=== PATIENT | female | born 1975 | race Caucasian/White ===

== ENCOUNTER 2018-01-13 08:07 | Outpatient (CLI) | payer MEDICARE, MEDICAID ==
--- NOTE | 2018-01-13 10:16 | MRI ---
MR OF THE RIGHT SHOULDER WITHOUT CONTRAST: Indication: 42-year-old female with prior history of rotator cuff repair with persistent pain in the right shoulder for 2-3 years. Technique: Multiplanar, multisequence MR images were obtained in the right shoulder without IV contra st. Comparisons are made with radiographs of the right shoulder from [facility] on 07-27. FINDINGS: Susceptibility artifact on the patient's suture anchor within the central aspect of the humeral head is slightly limited in its detail. There is moderate to severe tendinosis of the supraspinatus. There is a partial thickness arterial surface tear involving the infraspinatus, involving approximately 50 % of the tendon thickness. No full thickness rotator cuff tear is evident. A small amount of fluid is seen near the subacromial subdeltoid recess. The subscapularis tarsus minor appear within normal souza its. The biceps tendon is located. Biceps anchor complex and inferior glenohumeral labral ligamentous complex appears within normal limits. Glenohumeral articular surface is normal appearing. There is m ild AC joint osteoarthrosis. There is mild muscular atrophy of the supraspinatus. No lymphadenopathy is evident. IMPRESSION: 1. Partial thickness articular surface tear involving the infraspinatus. The partial thickness tear i nvolves approximately 50% of the tendon thickness of the inferior spinatus. 2. Moderate to severe supraspinatus tendinosis. 3. Post-surgical change of prior rotator cuff repair. POS: [facility]
== END 2018-01-13 08:08 | disposition home or self-care (01) ==
LOC: SCSMRI 08:07
PROVIDERS: ATTEND Orthopaedic Surgery
DX: M25.511 Pain in right shoulder (principal); S46.911A Strain of unspecified muscle, fascia and tendon at shoulder and upper arm level, right arm, initial encounter; M75.91 Shoulder lesion, unspecified, right shoulder

== ENCOUNTER 2018-11-11 14:56 | Observation (INO) | payer MEDICARE, MEDICAID ==
--- NOTE | 2018-11-11 17:16 | ULT ---
RIGHT LOWER EXTREMITY VENOUS DOPPLER: Date: 11/11/18 HISTORY: Lower extremity edema, pain, numbness. COMPARISON: None. TECHNIQUE: Real-time Lee scale and color Doppler with spectral analysis of the right lower extremity venous sy stem was performed. The common femoral, femoral, proximal portions of greater saphenous and deep femo ral veins, as well as the popliteal and posterior tibial veins are interrogated. FINDINGS: Normal flow, augmentation, and compression. IMPRESSION: No deep venous thrombosis. POS: [facility]
[2018-11-11 18:54] LABS: Bilirubin Small (Negative); Blood, Urine Negative (Negative); Clarity CLOUDY (Clear); Glucose, Urine (Dipstick) Negative (Negative); Leukocyte Moderate (Negative); Nitrite Positive (Negative); Protein, Urine (Dipstick) Negative (Neg-Trace); Specific Gravity, Urine 1.027 (1.002-1.036); Urobilinogen 0.2 mg/dL (0.2-1.0); pH, Urine 5.5 (5.0-9.0)
[2018-11-11 18:55] LABS: Pregnancy Test - Urine (BHCG) Negative (Negative); Pregu Control Background? CLEAR/WHITE (CLR/WHITE); Pregu Control Bar Appear? YES (CONTROL BAR); Specific Gravity 1.027 (1.002-1.036)
[2018-11-11 18:56] LABS: Bacteria/HPF 4+ HPF (None Seen); Pathc Cast-AUWi Flag 0.58 (0-2.49); RBC/HPF 0-3 HPF (0-3); WBC/HPF 21-50 HPF (0-3)
[2018-11-11 19:01] LABS: Hyaline Casts/LPF 0-3 HYALINE CAST LPF (0-3 Hyaline)
--- NOTE | 2018-11-11 19:38 | RAD ---
RIGHT ANKLE RADIOGRAPHS THREE VIEWS: 11/11/18 PROVIDED CLINICAL HISTORY: Right leg weakness. FINDINGS: There is no evidence for fracture or other acute osseous abnormality. If there is persistent clinical concern, conservative management and followup imaging are advised. IMPRESSION: As above. POS: [facility]
--- NOTE | 2018-11-11 20:55 | CT ---
CT BRAIN 11/11/18 PROVIDED CLINICAL HISTORY: Right lower extremity weakness. FINDINGS: Comparison 04/07/15. The ventricular system appears normal in size and morphology. There is no evidence for intracranial h emorrhage or mass effect. The extracranial soft tissues and osseous structures demonstrate no acute a bnormality. Conspicuous paranasal sinus opacification is demonstrated. IMPRESSION: 1. No evidence for intracranial hemorrhage or mass effect. 2. Paranasal sinus mucosal disease. POS: [facility]
--- NOTE | 2018-11-11 21:52 | CT ---
CT ANGIOGRAM ABDOMEN AND PELVIS AND BILATERAL LOWER EXTREMITIES WITH IV CONTRAST AND 3D MIP RECONSTRU CTIONS 11/11/18 PROVIDED CLINICAL HISTORY: Right lower extremity numbness. FINDINGS: The visualized lung bases are free of significant opacity. The solid abdominal organs are suboptimall y evaluated in the arterial phase of contrast but demonstrate an unremarkable CT appearance for the p hase of contrast in which the study was acquired. There was no bowel dilatation, inflammatory fat str anding, free fluid or free air apparent. Changes of prior cholecystectomy are noted. The abdominal aorta is nonaneurysmal and patent. The celiac, superior mesenteric, renal and inferior mesenteric arteries are patent. Minimal vascular calcification is seen involving the common iliac art enedina on the right. The internal and external iliac arteries appear widely patent. The bilateral common femoral, profunda femoral and superficial femoral arteries are widely patent, as are both popliteal arteries. The right posterior tibial and peroneal arteries are patent to the foot . The right anterior tibial artery is patent to the level of the mid foreleg subsequent to which it i s not opacified. The posterior tibial, anterior tibial, and peroneal arteries on the left are patent to the level to the foot. IMPRESSION: Two vessel runoff on the right. Otherwise unremarkable CT angiogram. POS: [facility]
[2018-11-11] MEDS ORDERED: Acetaminophen 325 MG TAB PO PRN (22:21)
--- NOTE | 2018-11-11 23:01 | RAD ---
RIGHT WRIST RADIOGRAPHS THREE VIEWS 11/11/18 PROVIDED CLINICAL HISTORY: Injury. FINDINGS: Evaluation is limited by overlying material. There is no evidence for fracture or other acute osseous abnormality. If there is persistent clinical concern, conservative management and followup imaging a re advised. IMPRESSION: As above. POS: [facility]
[2018-11-11 23:37] VITALS: BMI 27.9
--- NOTE | 2018-11-11 23:37 | MRI ---
MRI OF THE LUMBAR SPINE 11/11/18 PROVIDED CLINICAL HISTORY: Right calf and foot numbness for two days without injury. FINDINGS: Lumbar alignment appears normal. Vertebral body heights are preserved. Five lumbar vertebral bodies a re assumed. The conus medullaris is normal in signal and terminates at an appropriate level. The visu alized extraspinal soft tissues appear unremarkable. There is a central disc herniation at L5-S1. Thi s produces effacement of the ventral subarachnoid space and approximates the traversing left S1 nerve root and its lateral recess. There is bilateral facet arthritis at this level. There is mild right f oraminal narrowing. No significant central canal stenosis apparent. No additional foraminal or canal narrowing is seen throughout the lumbar spine. IMPRESSION: Degenerative change at the lumbosacral junction as above. POS: [facility]
[2018-11-12] MEDS ORDERED: clonazePAM 0.5 MG TAB PO SCH ×2 (00:30→09:00)
--- NOTE | 2018-11-12 05:10 | HP ---
CHIEF COMPLAINT: Right leg numbness. HISTORY: This patient is a 43-year-old female with a significant history of drug abuse and psychiatric illness who presented to the emergency department in [place] with a complaint of coldness and numbness in her right leg. The patient reports that she was in her usual state of health until yesterday. She took a nap. When she woke up, her leg below the right knee felt like it was asleep and would not wake up. She thought it would resolve, so she waited, but she has not been able to bear any weight or walk. She tried to stand and states she nearly fell, so she has basically been scooting around with her hands until she presented to the emergency department today. There, the patient's workup was unrevealing including a normal EKG. She was transferred here to the emergency department. She reports that she does have some sensation over the medial calf, but has no sensation over the lateral calf or the entire foot. She has no ability to move anything below the knee with flexion or extension. The patient initially was thought to have coolness to touch in her right lower extremity. She underwent an aortogram with runoff, which did not reveal any substantial occlusive disease and a vascular ultrasound was negative for DVT. REVIEW OF SYSTEMS: All systems reviewed and the only significant finding was some intermittent constipation; otherwise, all pertinent positives and negatives were mentioned in the history of present illness. PAST MEDICAL HISTORY: Notable for hep C with some cirrhosis, history of stomach ulcers, history of chronic bronchitis, history of drug abuse including cocaine abuse in the past. PSYCHIATRIC HISTORY: ADD, bipolar with psychosis, anxiety, borderline personality disorder, antisocial disorder. PAST SURGICAL HISTORY: Cleft palate repair, right inguinal hernia repair, C-sections x3, lap isidro, bilateral tubal ligation, right rotator cuff repair. Of note, the patient reported that she had some type of pituitary tumor; however, on reviewing her record, November of 2016, she had an MRI of the brain for "possible pituitary tumor." However, that MRI was negative. FAMILY HISTORY: Reviewed with the patient. There were no significant medical conditions within the family, certainly nothing relevant to this admission. SOCIAL HISTORY: The patient has a history of drug abuse. She currently continues to use [place] that she buys off the street. She smokes half a pack of cigarettes per day. Lives with her family. Says she has a fiance. She says that she wants to be DNR because one never knows how they might come out of something like that and her surrogate decision maker would be her "sebastian." ALLERGIES: PENICILLIN AND SULFA. CURRENT MEDICATIONS: 1. Klonopin 1 mg t.i.d. 2. Abilify 20 mg daily. 3. Lamictal 200 mg daily. 4. Protonix 40 mg daily. PHYSICAL EXAMINATION: VITAL SIGNS: BP 107/69, pulse 88, respirations 17, O2 saturation 96% on room air. GENERAL APPEARANCE: Age-appropriate female. She is in no distress. She is awake, alert, oriented, pleasant, and cooperative. HEENT: PERRL. No OP lesions. She does have multiple surgical changes from the cleft palate and cleft lip repair. NECK: Supple and symmetric without lymphadenopathy, JVD, or bruits. HEART: Regular rate and rhythm without murmurs, gallops, or rubs. LUNGS: Clear to auscultation bilaterally with good chest wall expansion and air exchange. ABDOMEN: Soft, nontender, and nondistended. Positive bowel sounds. No masses. No organomegaly. EXTREMITIES: No cyanosis, clubbing, or edema. NEUROLOGIC: The patient has no movements below the knee. She is able to fully lock out her knee and left her leg off the bed with good hip flexion and extension. She denies sensation over the medial calf, but she does have withdrawal of the entire leg to a Babinski, although she indicates no sensation on the foot. She does not have any significant temperature changes and the right lower extremity is warm and is similar to the left. She does have normal strength in her upper extremities and she has some slight tenderness in the right wrist area. IMAGING STUDIES: X-ray of the right ankle is negative. Vascular ultrasound negative for DVT. CT scan of the brain, no evidence of intracranial hemorrhage or mass effect. There are some paranasal sinus mucosal thickening. Aortogram with runoff. CTA, no evidence of significant occlusion. IMPRESSION AND PLAN: 1. Right lower extremity paresthesia, unclear etiology. The patient does not appear to have any vascular compromise based on her aortogram, a CTA with runoff. This is warm and dry. She has excellent posterior tibial and dorsalis pedis pulses present. We will keep the patient in observation, obtain an MRI of the lumbar spine, and ask Physical Therapy to see her. Pending the results, she may need further evaluation by Neurology. 2. Right wrist pain. The patient reports that she fell on this about a week ago. We will get an x-ray of that just to rule out any fracture there. 3. Bipolar disorder. We will continue the patient on her usual home psych medications. 4. Drug abuse. The patient continues to use street purchased [place]. We will not give her any of those at the moment and be mindful of any potential withdrawal. The patient reports she does not use these on a regular basis. Job ID: [id number]
[2018-11-12] MEDS: clonazePAM 0.5 MG TAB PO SCH ×3 (08:06→20:19)
[2018-11-12] MEDS ORDERED: lamoTRIgine 100 MG TAB PO SCH ×2 (09:00)
[2018-11-12] MEDS ORDERED: ADDERALL 20MG PO SCH (09:00)
[2018-11-12] MEDS ORDERED: Aripiprazole 10 MG TAB PO SCH ×2 (09:00)
--- NOTE | 2018-11-12 17:46 | PDOC.PN ---
- Subjective Encounter Start Date: 11/12/18 Encounter Start Time: 11:30 Subjective: Patient denies new complaints on exam this morning -: Using walker in the thomas with PT, dragging right foot, denies pain - Objective Resuscitation Status - Order Detail: 11/11/18 22:21 Resuscitation Status Routine Resuscitation Status: DNAR: NO Resuscitation Discussed with: Patient Vital Signs & Weight: Vital Signs (12 hours) Temp Pulse Pulse Pulse Resp BP BP 11/12/18 15:17 98.5 F 88 16 11/12/18 11:45 83 88 114/75 114/71 11/12/18 11:40 98.1 F 90 20 11/12/18 07:21 98.5 F 84 20 BP Pulse Ox 11/12/18 15:17 110/62 96 11/12/18 11:45 11/12/18 11:40 93/56 L 99 11/12/18 07:21 91/62 96 Weight Weight 65.952 kg I&O: 11/11/18 11/12/18 11/13/18 06:59 06:59 06:59 Intake Total 240 750 Output Total 700 Balance 240 50 Phys Exam - Physical Examination HEENT: PERRLA, moist MMs Neck: no nodes, no JVD Respiratory: no wheezing, clear to auscultation bilateral Cardiovascular: RRR, no significant murmur Gastrointestinal: soft, non-tender decreased sensation to right lower leg, decreased reflexes right lower leg Psychiatric: normal affect Skin: normal turgor, cap refill <2 seconds Dx/Plan (1) Decreased sensation of lower extremity Code(s): R20.8 - OTHER DISTURBANCES OF SKIN SENSATION Status: Acute (2) Bipolar 1 disorder Code(s): F31.9 - BIPOLAR DISORDER, UNSPECIFIED Status: Chronic (3) Drug abuse Code(s): F19.10 - OTHER PSYCHOACTIVE SUBSTANCE ABUSE, UNCOMPLICATED Status: Chronic - Plan cont current plan of care Dr. Frost ordered MRI brain and steroids and he will -: see patient tomorrow. -: Will continue to monitor VS/labs * .
--- NOTE | 2018-11-13 00:29 | CON ---
DATE OF CONSULTATION: 11/12/2018 CONSULTING PHYSICIAN: Hospitalist service. IMPRESSION: Acute right lower extremity weakness and numbness of uncertain etiology. It is a bit atypical for a mononeuritis multiplex to come on so abruptly. It is possible multiple sclerosis type attack could produce this, although it is a bit atypical as well. PLAN: 1. Prednisone 40 mg per day. 2. MRI of the brain. HISTORY OF PRESENT ILLNESS: Ms. Laura is a 43-year-old white female with a past history of hepatitis C with some secondary cirrhosis, gastric ulcers, chronic bronchitis, and a distant history of drug abuse. She awoke and found that her right leg was weak and numb. There was no associated pain. There is no weakness of any other extremity. She had a CT scan of the brain done, which was normal. She had an MRI of the lumbar spine done, which looks normal as well. She has never had anything like this before. She denies any prodromal illness. PAST MEDICAL HISTORY: As listed above. ALLERGIES: PENICILLIN AND SULFA. MEDICATIONS: 1. Klonopin. 2. Abilify. 3. Lamictal. 4. Protonix. FAMILY HISTORY: Unremarkable for any neurologic conditions. PAST PSYCHIATRIC HISTORY: ADD, bipolar with psychosis, anxiety, borderline personality disorder and antisocial behavior disorder. REVIEW OF SYSTEMS: No complaint of headache, nausea, vomiting, vertigo, slurred speech, facial numbness, upper extremity weakness or numbness. PHYSICAL EXAMINATION: GENERAL: She is a well-nourished, middle-aged woman, in no acute distress. VITAL SIGNS: Blood pressure 110/62, pulse 88, respirations 16, temperature 98.5. HEENT: Only remarkable for a repaired cleft lip. NECK: Supple. EXTREMITIES: No cyanosis or swelling. NEUROLOGIC: She is alert and appropriate. Her speech is fluent and clear. Cranial nerves II through XII are intact. Motor exam showed good strength in both upper extremities. Left lower extremity had normal strength. Right lower extremity had mild weakness of hip flexion and knee extension. She had severe weakness in the sciatic distribution with essentially 0/5 strength. Sensation was subjectively decreased in the right lateral leg and top and bottom of the foot. Reflexes were abstinent in the right leg. They were 1+ in the left leg. Plantar response was mute. Gait was not tested. LABORATORY STUDIES: Unremarkable CBC and serum chemistry panel. She had a drug screen done back in August, which was positive for methadone. SUMMARY: This is a 43-year-old woman with acute onset of right leg weakness and numbness without any associated pain. We will pursue MRI of the brain to rule out a central cause. I will go ahead and start her on steroids and follow up with her tomorrow. Job ID: [id number]
[2018-11-13] MEDS ORDERED: predniSONE 20 MG TAB PO SCH (08:00)
[2018-11-13 08:15] VITALS: BP 120/79; TEMP 97.9
--- NOTE | 2018-11-14 03:16 | DIS ---
DATE OF ADMISSION: 11/11/2018 DATE OF DISCHARGE: 11/13/2018 PRIMARY CARE PHYSICIAN: Dr. Justus Ramos. CONSULTANTS: Dr. Frost. PROCEDURES: 1. Aorta with runoff CTA. Impression; two-vessel runoff on the right, otherwise unremarkable CTA. 2. The patient had a brain CT. Impression;. a. No evidence of intracranial hemorrhage or mass effect. b. Paranasal sinus mucosal disease. 3. The patient had venous Doppler ultrasound on the right that showed no deep venous thrombosis. The patient had an ankle x-ray on the right, which showed no evidence for fracture or other acute osseous abnormality. The patient had a lumbar spine MRI which showed degenerative changes at the lumbosacral junction as above. 4. The patient had a right wrist radiograph which showed evaluation limited by overlying material. No evidence for fracture or other acute osseous abnormalities. HOSPITAL COURSE: Ms. Laura is a 43-year-old female, significant history of drug abuse and psychiatric illness who presented to the emergency room at [place] with a complaint of coldness and numbness to her right leg. The patient reports that she was in her usual state health when she took a nap. When she woke up, the right leg below the knee felt like it was asleep and would not wake up. She thought it would resolve, but she was not able to bear any weight or walk. She reports that she tried to stand and nearly fell and so she reported to the emergency room at [place]. She reports that she does have some sensation of the medial calf, but no other sensation to the lateral calf or entire foot. She has no ability to move anything below the knee with flexion or extension. She initially was thought to have some coolness to the touch on the right lower extremity, so she had an aortogram with a runoff which did not reveal any substantial occlusive disease and a vascular ultrasound which was negative for DVT. The patient was admitted to the observation unit for further management. The patient had an MRI of the lumbar spine and had a consultation by Dr. Frost, neurologist. IMPRESSION: Acute right lower extremity weakness and numbness of uncertain etiology, atypical for mononeuritis multiplex since it came on so abruptly, possible multiple sclerosis type attack, but also atypical. PLAN: Prednisone 40 mg per day. MRI of the brain. On 11/13 a.m., the patient reports that she wanted to go home, wanted to sign out AMA. This provider went into talk to her to try to talk her into staying for the brain MRI and allow Dr. Frost to finish his assessment. She refused and signed out AMA. CONDITION: Stable. The patient discharged AMA. The patient should follow up with her primary care, Dr. Frost, this was verbally expressed to her and she stated understanding. The patient case was discussed with Dr. Cortez and he was aware. Job ID: [id number]
== END 2018-11-13 08:26 | disposition left against medical advice (07) ==
LOC: ERS 14:56 → 2SW 20:55
PROVIDERS: ADMIT Family Medicine; ATTEND Family Medicine
DX: R53.1 Weakness (principal); B19.20 Unspecified viral hepatitis C without hepatic coma; K74.60 Unspecified cirrhosis of liver; F98.8 Other specified behavioral and emotional disorders with onset usually occurring in childhood and adolescence; F31.9 Bipolar disorder, unspecified; F60.3 Borderline personality disorder; F11.10 Opioid abuse, uncomplicated; Z90.49 Acquired absence of other specified parts of digestive tract; Z98.51 Tubal ligation status; Z88.2 Allergy status to sulfonamides; Z88.0 Allergy status to penicillin; Z79.52 Long term (current) use of systemic steroids; Z98.890 Other specified postprocedural states; Z79.899 Other long term (current) drug therapy; M79.661 Pain in right lower leg
CPT/HCPCS: 70450; 72148; 73110; 73610; 75635; 81025; 93971; 97139; 99285; G0378 ×2; G8978; G8979; 81003; 81015; J7506

== ENCOUNTER 2018-12-21 12:09 | Outpatient (CLI) | payer MEDICARE, MEDICAID ==
[2018-12-21] MEDS ORDERED: Gadobenate Dimeglumine 529 MG/1 ML (20ML VIAL) ONE (13:25)
--- NOTE | 2018-12-21 15:33 | MRI ---
MRI OF BRAIN WITH AND WITHOUT IV CONTRAST: 12/21/18 HISTORY: Paresthesia of lower extremity. Right leg numbness. COMPARISON: 12/03/16. No restricted diffusion is seen. No evidence of infarct, hemorrhage, mass, midline shift, or abnormal extra-axial fluid collections are noted. The ventricular size is stable and the basilar cisterns pat ent. No abnormal postcontrast enhancement is seen. No signal abnormalities are noted in the high sens itive FLAIR images. The visualized paranasal sinuses and mastoid air cells are well aerated. IMPRESSION: Unremarkable exam. POS: [facility]
== END 2018-12-21 12:10 | disposition home or self-care (01) ==
LOC: BICMRI 12:09
PROVIDERS: ATTEND Nurse Practitioner Acute Care
DX: R20.2 Paresthesia of skin (principal)
CPT/HCPCS: 70553; A9577

== ENCOUNTER 2020-06-23 12:50 | Inpatient (IN) | payer MEDICARE, MEDICAID, OTHER ==
[~2020-06-23 12:50] MED LIST: Iopamidol-370 76% 500 ML 1 ML ONE
--- NOTE | 2020-06-23 14:04 | ULT ---
US Pelvic Transvag W Doppler History: Pelvic pain Comparison: CT examination June 15, 2020 Findings: Real-time grayscale and color evaluation of the pelvis performed transabdominal approach on ly. Dilated debris filled structures in the pelvis extending from the right to the left adnexa abutting t he urinary bladder. Internal components are not solid. Peripherally the barry are irregular with internal debris. Right ovary not well seen. Left ovary is normal. Impression: Findings highly suggestive of left pyosalpinx and tubo-ovarian abscesses. Gynecologic con sultation advised.
[2020-06-23] MEDS ORDERED: Morphine 4 MG/ML VIAL ONE ×2 (14:24→18:22)
[2020-06-23] MEDS ORDERED: cefTRIAXone\\ROCEPHIN 2 GM VIAL ONE (14:24)
--- NOTE | 2020-06-23 14:36 | PDOC.BPN ---
- Brief Progress Note OBGYN Machine Clerical Verifier Phone consult Just spoke with the ED provider regarding Ms Laura. This is a 44 yo with HX Hep C , s/p prior BTL in the past with a CT done on 06/15 with a left complex adnexal cystic structure. She did not have follow up then and returns today from [place] for pelvic sono due to Left LAP. Sono here with cystic structure left adnexa to midline but sono states "normal left ovary". WBC is 19 today, lactate is normal. LFTS are normal As she is 44, s/p prior BTL, with a "normal ovary on the left"...I am not sure if this is PID/pyosalping vs other. Hard to have a TOA with a normal ovary on the left but it could be isolated left pyosalpinx. They will get another CT to get more information. I have requested Rocephin/Doxy/flagyl for now. Hep C viral load sent off as well
[2020-06-23 15:06] LABS: Bacteria/HPF 4+ HPF (None Seen); Bilirubin Negative (Negative); Blood, Urine Negative (Negative); Clarity Turbid (Clear); Glucose, Urine (Dipstick) Normal (Negative); Ketone, Urine 10 mg/dL (Negative); Leukocyte 75 Leu/uL (Negative); Nitrite 2+ (Negative); Protein, Urine (Dipstick) 30 mg/dL (Neg-Trace); RBC/HPF 0-3 HPF (0-3); Specific Gravity, Urine 1.034 (1.002-1.036); Squamous Epithelial 0-3 HPF (0-3); Urobilinogen Normal mg/dL (Less than 2); pH, Urine 6.5 (5.0-9.0)
[2020-06-23 15:07] LABS: Pregnancy Test - Urine (BHCG) Negative (Negative); Pregu Control Background? CLEAR/WHITE (CLR/WHITE); Pregu Control Bar Appear? YES (CONTROL BAR); Specific Gravity 1.034 (1.002-1.036)
[2020-06-23] MEDS ORDERED: metroNIDAZOLE 500 MG/100 ML BAG ONE (15:18)
[2020-06-23] MEDS ORDERED: Doxycycline 100 MG CAP PO SCH (15:30)
[2020-06-23] MEDS ORDERED: Pantoprazole 40 MG VIAL ONE (15:43)
[2020-06-23] MEDS ORDERED: Ondansetron PF 4 MG/2 ML Vial ONE ×2 (15:43→18:23)
--- NOTE | 2020-06-23 16:07 | CT ---
CT Abdomen Pelvis W Con History: Abdominal pain Comparison: Ultrasound same day. CT May 2020 Findings: Lung bases are clear. No pericardial effusion. Mild intrahepatic biliary dilatation, likely reservoir effect from prior cholecystectomy. No hydronephrosis. Mildly distended cecum and secondary inflammatory change. Appendix is well-visualized on today's exam than prior. Peripherally enhancing abscess anterior to the uterus has slightly increased in size. Extensive sligh t progressive inflammatory response of the adjacent prevesicular fat. There are clips within the right adnexa. Rightward displacement of the uterus. Anterior displacement of the urinary bladder. Impression: Slightly enlarging and increased inflammatory response around the tubo-ovarian abscess an d suggestive pyosalpinx. Gynecologic consultation advised.
--- NOTE | 2020-06-23 16:24 | PDOC.BPN ---
- Brief Progress Note CT scan with approx 7x5 cm cystic collection?pyosalpinx. VP3 with BV and yeast. Flagyl included in the meds ordered. Will admit for empiric ABX and follow. Afebrile at this point. Recheck CBC in AM
[2020-06-23] MEDS ORDERED: Sodium Chloride 0.9% 1,000 ML IV SCH (16:30)
--- NOTE | 2020-06-23 17:22 | HP ---
TIME OF EVALUATION: Roughly 1645 hours. LOCATION: ER bed 24. HISTORY OF PRESENT ILLNESS: In brief, this is a 44-year-old 9, para 3, living 4 (one set of twins) with 3 previous C-sections, with one molar in the past, whose last menstrual period was two weeks ago, who arrives after initial evaluation in [place] [facility]. She was sent to this ER for pelvic ultrasound for further evaluation of what the CT scan showed, which was a possible left TOA/hydrosalpinx or pyosalpinx. She arrived here and she underwent an ultrasound, which showed this left complex cystic structure about 7 x 5 cm on ultrasound, but ironically, the left ovary was normal per ultrasound findings. The right ovary was not well seen and there were no gross uterine abnormalities by verbal ultrasound report. The ER physician did contact me and have an interim progress note in the EMR regarding that brief conversation before my in-person evaluation. In the interim, she had a CT scan, which showed similar findings to the ultrasound, this ill-described pelvic fluid collection in the left slightly abutting the uterus and slightly in the anterior cul-de-sac. It is a working suspicion at this time that this is a pyosalpinx versus other. Clinically, the patient is well. REVIEW OF SYSTEMS: The patient states some lower abdominal pain, which has been going on for several days and has prompted an ER evaluation first in [place] and now here. She also states that she has irregular periods and has not had a period since possibly December, but her last menstrual period was now about 2 weeks ago. PAST MEDICAL HISTORY: She does have hepatitis C by her record, but she does not see a liver specialist. She is not on any medications. ALLERGIES: SULFA AND PENICILLIN. PAST PSYCHOLOGICAL HISTORY/PSYCHIATRY HISTORY: Positive for bipolar or paranoid schizophrenia. The patient states that she has paranoid schizophrenia, but is under control and is not on under medications, although she did see a private psychiatrist in the past. The ER record states that she has a history of bipolar. The patient has either one or both of these two conditions. PAST SURGICAL HISTORY: Significant for her three previous C-sections and BTL with her last . SOCIAL HISTORY: The patient has a new partner and has had recent unprotected intercourse with that partner. 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 She may have had "an outbreak recently", but is not sure. Social history per the ER physician is noncontributory, although she does have a remote history of drug use. PHYSICAL EXAMINATION: VITAL SIGNS: Blood pressure is 123/82, pulse is 100, and she is afebrile with a temperature of 98.2, respirations are 18, and nonlabored. GENERAL: She is in no acute distress, sitting up, and is oriented to person, place, and time. Per the ER physician, there is no vaginal bleeding or abnormal discharge. Per the ER abdominal examination, she did have discomfort on deep palpation in the adnexal regions, left more than right. RADIOLOGICAL STUDIES: CT and ultrasound were done here in the ER and the findings were as previously discussed. LABORATORY DATA: Her white blood cell count here was 19. Her lactate was normal. Her liver function tests were actually normal as well. Her creatinine was normal. Her voided urine did show some 4+ bacteria, but it is possibly contaminated. Labs pending. We have a hepatitis C RNA requested, I have also requested HIV and RPR. We will do a repeat CBC tomorrow morning. ASSESSMENT: This is a 44-year-old multigravida with last menstrual period two weeks ago, status post BTL years ago, with suspected left hydrosalpinx or pyosalpinx. I did discuss with the ER physician that the patient at 44 years of age, who has had a BTL makes pyosalpinx/hydrosalpinx less likely; however, she has had risk factors, which is unprotected intercourse with a new partner. Gonorrhea and chlamydia were also collected and those are pending. I have discussed with the patient the findings and the empiric diagnosis of PID and plan for inpatient antibiotics. PLAN: 1. Inpatient antibiotics with IV Rocephin and Flagyl, oral doxycycline. 2. NSAIDs p.r.n. pain. 3. Repeat CBC in the morning and follow trend. 4. Follow GC and chlamydia PCR. 5. Follow her HIV and RPR PCR. 6. If the patient is not better in 72 hours, we may consider surgical consult and/or Interventional Radiology drainage or laparoscopic imaging to find the exact source of this fluid collection. 7. The patient is seen at bedside and questions were answered. Job ID: [id number]
[2020-06-23 17:46] LABS: HIV (1/2) Antibody/Antigen Non-Reactive (NonReactive)
[2020-06-23] MEDS ORDERED: Ondansetron ORAL SOLN. 4 MG/5 ML UDCUP PO PRN (18:13)
[2020-06-23 18:50] LABS: Syphilis Antibody Nonreactive (Nonreactive); Syphilis Antibody Index 0.07 S/CO (<1.00 Non-Reactive)
--- NOTE | 2020-06-23 20:26 | PDOC.BPN ---
- Brief Progress Note CALE pablo not done in ED. I have ordered it now.
--- NOTE | 2020-06-23 20:37 | PDOC.BPN ---
- Brief Progress Note Patient was on protonix...will order. Was informed she has a HX opioid addiction.
[2020-06-23] MEDS: Lactated Ringer's 1,000 ML IV SCH (21:21)
[2020-06-24] MEDS: metroNIDAZOLE 500 MG in Premix Bag 1 BAG IVPB SCH ×5 (00:04→19:47)
[2020-06-24] MEDS: Ibuprofen 800 MG TAB PO PRN ×3 (00:04→16:58)
--- NOTE | 2020-06-24 03:53 | PDOC.BPN ---
- Brief Progress Note HD 23 Suspected Left Hydrosalpinx vs other On triple ABX S. Patient was sleeping when I visited her O. TMAx 100.9 LAST pm AT APROX 1930 CBC PENDING THIS am BLOOD AND URINE CULTURE PENDING gc AND chl PENDING HEP C RNA PENDING COVIS SCREEN PENDING A/P: PELVIC TOA VS OTHER: HX Hep C HX Opiod use CONTINUE abx X3...FOLLOW LABS
[2020-06-24] MEDS: Lactated Ringer's 1,000 ML IV SCH ×3 (06:01→23:56)
[2020-06-24] MEDS: cefTRIAXone\\ROCEPHIN 2 GM in Sodium Chloride 0.9% 100 ML IVPB SCH ×2 (07:32→16:17)
[2020-06-24 08:22] LABS: Band 2 % (5-11); Hemoglobin 8.4 g/dL (12.0-16.0); Hypochromia MODERATE=16-30 cells (100X) (0-5/hpf); Lymphocytes 7 % (21-51); MDiff Complete? YES; Mean Corpuscular Hemoglobin 22.1 pg (27.0-31.0); Mean Corpuscular Volume 71.5 fL (78.0-98.0); Mean Platelet Volume 7.5 fL (7.4-10.4); Microcytosis SLIGHT = 6-15 cells (100X) (0-5/hpf); Monocytes 2 % (0-10); Neutrophil 89 % (42-75); Platelet Count 527 thou/uL (130-400); RBC Distribution Width 16.8 % (11.5-14.5); Reflex for Review?? YES; White Blood Cell (WBC) Count 16.5 thou/uL (4.8-10.8)
[2020-06-24] MEDS ORDERED: Fluconazole 100 MG TAB PO SCH (11:00)
[2020-06-24] MEDS ORDERED: Bisacodyl 5 MG TAB PO SCH (14:45)
[2020-06-24 15:00] LABS: SARS-CoV-2 MS2 Positive; SARS-CoV-2 N Gene Negative; SARS-CoV-2 S Gene Negative; SARS-CoV-2 by NAA Not Detected (NotDetected); SARS-CoV-2 orf1ab Negative
[2020-06-24] MEDS: Dicyclomine 20 MG TAB PO PRN ×2 (16:58→21:49)
[2020-06-25] MEDS: Ibuprofen 800 MG TAB PO PRN ×3 (00:10→20:03)
[2020-06-25] MEDS: metroNIDAZOLE 500 MG in Premix Bag 1 BAG IVPB SCH ×4 (00:10→17:46)
[2020-06-25] MEDS: Lactated Ringer's 1,000 ML IV SCH ×3 (00:14→23:15)
--- NOTE | 2020-06-25 06:43 | PDOC.EVN ---
Event Note - Event Note Event Note: Rocephin/Dox/ Flagyl #2 Resting comfortably. says she feels better than yesterday. VSS AF. Abdomen soft, NT UC returns with GNR >10x6 A/p; Suspected TOA CBC repeated this AM Cont. ABX, consider re imaging after 72 hrs ABX
[2020-06-25] MEDS: Ondansetron ODT 4 MG TAB PO PRN ×2 (08:24→14:20)
[2020-06-25] MEDS: Bisacodyl 5 MG TAB PO SCH (08:25)
[2020-06-25 08:39] LABS: #Basophils 0.1 thou/uL (0.0-0.2); #Lymphocytes 1.4 thou/uL (1.20-3.40); #Monocytes 0.6 thou/uL (0.11-0.59); #Neutrophils 11.3 thou/uL (1.40-6.50); %Basophils 0.4 % (0.0-1.0); %Eosinophils 0.1 % (0.0-10.0); %Lymphocytes 10.3 % (21.0-51.0); %Monocytes 4.3 % (0.0-10.0); Hemoglobin 9.3 g/dL (12.0-16.0); Mean Corpuscular HGB CONC 29.9 g/dL (32.0-36.0); Mean Corpuscular Hemoglobin 21.9 pg (27.0-31.0); Mean Corpuscular Volume 73.3 fL (78.0-98.0); Mean Platelet Volume 6.8 fL (7.4-10.4); Platelet Count 637 thou/uL (130-400); RBC Distribution Width 16.6 % (11.5-14.5); Red Blood Cell (RBC) Count 4.22 mill/uL (4.20-5.40); White Blood Cell (WBC) Count 13.3 thou/uL (4.8-10.8)
[2020-06-25 09:37] LABS: Hypochromia SLIGHT = 6-15 cells (100X) (0-5/hpf); MDiff Complete? YES; Microcytosis SLIGHT = 6-15 cells (100X) (0-5/hpf); Platelet Morphology Comment Appears Increased; Polychromasia SLIGHT = 2-3 cells (100X) (0-2/hpf)
--- NOTE | 2020-06-25 11:46 | PDOC.BPN ---
- Brief Progress Note Patient called out requesting more pain medication than ibuprofen prescribed. I went to speak with her regarding her history of opioid abuse. Has history of methadone treatment 15 years ago and does not use regularly now, but "dabbles" with percocet. Her last dose was Thursday and reports it is her only dose in a month. She reports if we don't treat her pain, that she will "go get it off the streets," or have someone bring it to her. Since she has pathology that may need stronger pain medication, I will write for Tylenol #3 for pain as a short term addition to her ibuprofen.
[2020-06-25] MEDS: Dicyclomine 20 MG TAB PO PRN (12:06)
[2020-06-25] MEDS: Acetaminophen/Codeine 30-300mg Tablet PO PRN (12:06)
[2020-06-25 14:36] VITALS: BMI 25.5
[2020-06-25] MEDS: cefTRIAXone\\ROCEPHIN 2 GM in Sodium Chloride 0.9% 100 ML IVPB SCH (16:30)
[2020-06-26] MEDS: metroNIDAZOLE 500 MG in Premix Bag 1 BAG IVPB SCH ×4 (00:04→17:49)
[2020-06-26] MEDS: Acetaminophen/Codeine 30-300mg Tablet PO PRN ×4 (03:14→20:20)
[2020-06-26] MEDS: Ondansetron ODT 4 MG TAB PO PRN (03:14)
[2020-06-26] MEDS: Lactated Ringer's 1,000 ML IV SCH ×3 (04:55→20:24)
--- NOTE | 2020-06-26 07:12 | PDOC.BPN ---
- Brief Progress Note S: Patient feeling a little better this morning. Pain overnight but controlled with Tylenol #3 and motrin. BM yesterday. Claims she hasn't had anything to eat or drink, but has empty drink and applesauce/yogurt containers on her bedside. O: Vital Signs - Most Recent Temp Pulse Resp BP Pulse Ox 98.3 F 77 20 135/87 97 06/26/20 03:15 06/26/20 03:15 06/26/20 03:15 06/26/20 03:15 06/25/20 19:45 Gen - AAO, NAD Abd - soft, mildly TTP A/P: Continue IV antibiotic medications. Continue to monitor. Encourage PO intake.
[2020-06-26] MEDS ORDERED: Oxytocin 10 UNITS/ML VIAL ONE (10:23)
[2020-06-26] MEDS: Bisacodyl 5 MG TAB PO SCH (10:36)
[2020-06-26 10:38] LABS: HCV log10 4.922 (.); Hep C PCR-Quant 83500 IU/mL (.)
[2020-06-26] MEDS: Ibuprofen 800 MG TAB PO PRN (14:08)
[2020-06-26] MEDS: cefTRIAXone\\ROCEPHIN 2 GM in Sodium Chloride 0.9% 100 ML IVPB SCH (16:39)
[2020-06-26 20:59] LABS: Chlamydia by PCR Not Detected (NotDetected); GC by PCR Not Detected (NotDetected)
[2020-06-27] MEDS: metroNIDAZOLE 500 MG in Premix Bag 1 BAG IVPB SCH ×2 (00:01→05:51)
[2020-06-27] MEDS: Acetaminophen/Codeine 30-300mg Tablet PO PRN ×2 (00:38→11:26)
[2020-06-27] MEDS: Lactated Ringer's 1,000 ML IV SCH ×2 (05:52→11:53)
--- NOTE | 2020-06-27 06:08 | PDOC.BPN ---
- Brief Progress Note Lab check: GC and CHL are neg
--- NOTE | 2020-06-27 06:22 | PDOC.BPN ---
- Brief Progress Note HD4 Patient seen at bedside. Feels better. Vitals reviewed: afebrile GC andf CHL and blood cultures all neg OK for outpatient care with continued po doxy and flagyl. Has scheduled follow up on 07/04. See discharge dictation
--- NOTE | 2020-06-27 06:55 | DIS ---
DATE OF ADMISSION: 06/23/2020 DATE OF DISCHARGE: 06/27/2020 LOCATION: Bed #330. PRINCIPAL DIAGNOSES: 1. Pelvic infection, suspected pelvic inflammatory disease. 2. History of opioid use/abuse. HOSPITAL COURSE: In brief, this patient was admitted by me on June 23, 2020 as a 44-year-old female with pelvic pain and a CT/pelvic ultrasound imagery compatible with possible tuboovarian abscess versus hydrosalpinx. This was more pronounced on the left than on the right. The patient did have a previous BTL, which made PID less likely, but nonetheless that was what the clinical picture suggested. There was no evidence of appendicitis on the images. She was admitted for IV antibiotics for suspected pelvic inflammatory disease. She was given IV Flagyl and ceftriaxone. The patient also received IV fluid hydration in the ER and continued to receive IV hydration during the hospital stay. LABORATORY DATA: On laboratory assessment, her initial CBC was elevated at 16, but on June 25, it was down trending to 13. She did have evidence of a UTI with a urine culture showing E. coli, which was also being treated effectively as it was sensitive to ceftriaxone. Her gonorrhea and chlamydia PCR test returned prior to discharge and were both negative. She also had blood cultures, which were negative. DISPOSITION: I evaluated the patient at bedside on June 27, 2020, and noting that she was clinically improved, I decided to send her home on oral doxycycline and metronidazole. She has a followup with Dr. Clifton on the per her report. She was discharged home in good and stable condition. Job ID: [id number] [facility]
--- NOTE | 2020-06-27 07:57 | PDOC.BPN ---
- Brief Progress Note Order 1 gram po zithromax prior to DC as her doxy was somehow Discontinued and this will cover any atypicals. Chl was neg though.
[2020-06-27 08:14] VITALS: TEMP 98.1
[2020-06-27] MEDS ORDERED: Fluconazole 100 MG TAB PO SCH (09:00)
[2020-06-27] MEDS ORDERED: Azithromycin 250 MG TAB PO SCH (09:00)
[2020-06-27] MEDS: Bisacodyl 5 MG TAB PO SCH (09:22)
[2020-06-27 10:35] VITALS: BP 153/90
[2020-06-27] MEDS: Ondansetron ODT 4 MG TAB PO PRN (11:25)
[2020-06-27] MEDS: Ibuprofen 800 MG TAB PO PRN (11:26)
--- NOTE | 2020-06-29 05:21 | PQF ---
Dear : Silverio Morales Date : 06/29/20 Please exercise your independent, professional judgment in responding to the clarification form. Clinical indicators are provided on the bottom of this form for your review Can you please further clarify if Sepsis is ruled in or ruled out? Sepsis [ ] Ruled in diagnosis [ ] Continue to treat [ ] Resolved [X] Ruled out diagnosis [X] Improving [ ] Cannot rule out diagnosis [ ] Other diagnosis [ ] Unable to determine Physician Signature: Silverio Morales MD Date/Time: 06/29/2020 0817 For continuity of documentation, please document condition throughout progress notes and discharge summary. Thank You. To be completed by CDI/Coding staff for physician review: Present Clinical Indicators - Signs / Symptoms / Labs Results and Location in Medical Record [ x ] VS: BP137/98, Pulse 2=105, RR 18, T 99.8 ED Provide pg.2 [ x ] Mild tachycardia ED Provide pg.2 [ x ] Lower abdominal abscess, Sepsis ED Provide pg.4 [ x ] Lower abdominal pain for several days H and P pg.1 [ x ] WBC 16.5H, 13.3H Laboratory [ x ] Lactic 1.1 Laboratory [ x ] Urine culture: E.coli DS pg.1 [ x ] possible tubo-ovarian abscess versus hydrosalpinx DS 06/27 [ x ] Blood culture: no growth in 5 days Collected 06/23 Present Risk Factors Results and Location in Medical Record [ x ] Pelvic infection DS pg.1 [ x ] UTI DS pg.1 [ x ] Hepatitis C HP 06/23 Present Treatments Results and Location in Medical Record [ x ] Pelvis Ultrasound 06/23 Pelvis Ultrasound 06/23 [ x ] IV Fluids MAR [ x ] Abdomen / Pelvis CT Abdomen / Pelvis CT 06/23 [ x ] Urine culture Microbiology [ x ] Rocephin 2gm IV MAR [ x ] Azithromycin 1000gm PO MAR [ x ] Blood culture Microbiology [facility]S/[facility]er Signature: Gary Patel Phone #: [phone] Date: 06/19/20 This is a permanent part of the Medical Record [facility]
== END 2020-06-27 11:45 | disposition home or self-care (01) | DRG 758 ==
LOC: ERS 12:50 → 3SW 16:22
PROVIDERS: ADMIT Obstetrics & Gynecology; ATTEND Obstetrics & Gynecology
DX: N73.9 Female pelvic inflammatory disease, unspecified (principal); N39.0 Urinary tract infection, site not specified; F20.0 Paranoid schizophrenia; N70.11 Chronic salpingitis; B96.20 Unspecified Escherichia coli [E. coli] as the cause of diseases classified elsewhere; F31.9 Bipolar disorder, unspecified; B18.2 Chronic viral hepatitis C; Z88.0 Allergy status to penicillin; Z88.2 Allergy status to sulfonamides; Z98.51 Tubal ligation status
CPT/HCPCS: 36415; 51701; 74177; 76856; 81003; 81015; 81025; 83605; 85025; 85060; 86780; 87040; 87077; 87086; 87186; 87389; 87480; 87491; 87510; 87522; 87591; 87635; 87660; 96365; 96367; 96375; 96376; C9113; J0696; J2270; J2405; J2590; J3490; Q0162; Q9967; U0003